=== PATIENT | female | born 1980 | race Caucasian/White ===

== ENCOUNTER 2019-09-29 13:26 | Emergency (ER) | payer BC, SELFPAY ==
--- NOTE | ~2019-09-29 | XR_ITS ---
XR chest 2V DATE: 09/29/2019 14:14 INDICATION: Cough and shortness of breath for a week TECHNIQUE: PA and lateral views COMPARISON: None FINDINGS: Bilateral hyperinflation. No pulmonary infiltrate or consolidation, pleural effusion or pul monary vascular congestion or pneumothorax. Normal heart size. No hilar or mediastinal enlargement. I ncluded skeletal structures are unremarkable. IMPRESSION: Bilateral hyperinflation; otherwise no active cardiopulmonary disease Reviewed, dictated and finalized at location A. IMPRESSION: Bilateral hyperinflation; otherwise no active cardiopulmonary disea se
[2019-09-29 13:35] VITALS: BP 120/67; PULSE 100; RESP 20; TEMP 37; O2SAT 100
--- NOTE | 2019-09-29 14:09 | ED.URI ---
HPI - URI/Sore Throat General Chief Complaint: Upper Respiratory Infection Stated Complaint: ears low grade fever drainage Time Seen by Provider: 09/29/19 13:41 Source: patient and RN notes reviewed Mode of arrival: ambulatory Limitations: no limitations History of Present Illness HPI Narrative: Patient presents today with an 8-day history of illness. Symptoms include fever up to 100.4, occasional cough with occasional shortness of breath, nasal congestion and postnasal drip, headache, body aches, left ear pain with decreased hearing. At onset of symptoms, patient had nausea and vomiting, but these GI symptoms have resolved. The remainder of her symptoms have persisted. States that she has an in-home pulse ox monitor and reports that a few days ago her pulse ox was 90% for approximately 5 minutes, and at this time she was slightly short of breath. Pulse ox then maritza to 95 to 97%. 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 She did call her PCP last week and was told That she likely had a virus, but he did not believe that she has COVID-19. Denies history of asthma or COPD. Patient does not vape. She took 1 dose of Advil Cold and Sinus this morning, but no other medications for symptoms since onset. She also has history of seasonal allergies. MD elicited complaint: cough and nasal congestion Related Data Home Medications Medication Instructions Recorded Confirmed alprazolam [Xanax] 0.25 mg PO TID PRN 09/29/19 09/29/19 ergocalciferol (vitamin D2) 1,250 mcg PO WEEKLY 09/29/19 09/29/19 [Vitamin D2] Allergies Allergy/AdvReac Type Severity Reaction Status Date / Time doxycycline Allergy Unknown Rash Verified 09/29/19 13:45 Review of Systems Review of Systems: Narrative: CONSTITUTIONAL: Denies chills, or sweats.+Fever, body aches EYES: Denies visual changes, redness, or discharge. ENT: Denies sore throat. +Congestion, rhinorrhea, postnasal drip, left ear pain with decreased hearing CARDIOVASCULAR: Denies chest pain, palpitations, or edema. RESPIRATORY: +Cough, occasional shortness of breath GASTROINTESTINAL: Denies abdominal pain, nausea, vomiting, or diarrhea. GENITOURINARY: Denies dysuria or hematuria. SKIN: Denies rash, itching, or wounds. MUSCULOSKELETAL: Denies back pain, joint pain, or myalgia. NEUROLOGIC: Denies numbness, tingling, or weakness.+Headache PSYCH: Denies depression or anxiety. PMFSH Comments At time of signature, I have reviewed and agree with nursing past medical, surgical, social and family history unless otherwise noted. Please see nursing chart for further information. There is no relevant family history pertinent to the presenting complaint Exam Narrative: Exam Narrative: GENERAL: Well-appearing, well-nourished, and in no acute distress. HEAD: Normocephalic, atraumatic. EYES: EOMI. No redness or drainage. Conjunctivae normal. ENT: Mucous membranes pink and moist. Nares clear. No rhinorrhea. TMs normal bilaterally. Throat normalWith small amount of white postnasal drainage. Uvula midline. NECK: Normal AROM. Supple. No lymphadenopathy. CHEST: No respiratory distress. Clear to auscultation. HEART: Regular rate and rhythm. No murmur appreciated. Normal peripheral pulses. EXTREMITIES: Normal range of motion. No edema. SKIN: Warm, dry, no rash. Capillary refill normal. Normal skin turgor. NEURO: No focal deficits. Alert and oriented x3. Gait steady. PSYCH: Normal affect. No signs of depression or anxiety. Course Vital Signs Vital signs: Vital Signs Temperature 98.6 F 09/29/19 13:35 Pulse Rate 100 09/29/19 13:35 Respiratory Rate 09/29/19 13:35 Blood Pressure 120/67 09/29/19 13:35 Pulse Oximetry 100 09/29/19 13:35 Temperature 98.6 F 09/29/19 13:35 Pulse Rate 100 09/29/19 13:35 Respiratory Rate 09/29/19 13:35 Blood Pressure 120/67 09/29/19 13:35 Pulse Oximetry 100 09/29/19 13:35 Reviewed MDM - URI/Sore Throat MDM Narrative Medical decision alberto
--- NOTE | 2019-10-08 11:59 | PC.NURSE ---
Alvino Villafana spoke with HAMZAH Caban and patient on 10/06/2019. Retest scheduled.
== END 2019-09-29 15:00 | disposition home or self-care (01) ==
PROVIDERS: Emergency Provider Nurse Practitioner; PCP Emergency Medicine
DX: B34.9 Viral infection, unspecified (principal); F41.9 Anxiety disorder, unspecified
CPT/HCPCS: 71046; 99213; G0463

== ENCOUNTER 2020-05-14 14:56 | Emergency (ER) | payer BC, SELFPAY ==
[2020-05-14 15:07] VITALS: BP 123/70; PULSE 109; RESP 16; TEMP 37.4; O2SAT 100
--- NOTE | 2020-05-14 15:31 | ED.URI ---
HPI - URI/Sore Throat General Chief Complaint: Upper Respiratory Infection Stated Complaint: Neck pain Source: patient Mode of arrival: ambulatory Limitations: no limitations History of Present Illness HPI Narrative: Patient is a 39-year-old female who presents complaining of sore throat, posterior and frontal headache, and mild body aches x2 days. Reports sore throat and headache increasing this a.m. She denies known exposure to COVID-19. She does work in healthcare. She also reports that she has not had a flu shot as of this time. She denies taking [id number] medications prior to arrival in urgent care. MD elicited complaint: sore throat Related Data Home Medications Medication Instructions Recorded Confirmed alprazolam [Xanax] 0.25 mg PO TID PRN 09/29/19 05/14/20 ergocalciferol (vitamin D2) 1,250 mcg PO WEEKLY 09/29/19 05/14/20 [Vitamin D2] Allergies Allergy/AdvReac Type Severity Reaction Status Date / Time doxycycline Allergy Unknown Rash Verified 05/14/20 15:06 Review of Systems Review of Systems: Narrative: CONSTITUTIONAL: Denies fever, chills, or sweats. EYES: Denies visual changes, redness, or discharge. ENT: Reports sore throat CARDIOVASCULAR: Denies chest pain, palpitations, or edema. RESPIRATORY: Denies cough or dyspnea. GASTROINTESTINAL: Denies abdominal pain, nausea, vomiting, or diarrhea. GENITOURINARY: Denies dysuria or hematuria. SKIN: Denies rash or itching. MUSCULOSKELETAL: Denies back pain, joint pain, or myalgia. NEUROLOGIC: Reports headache, denies numbness, dizziness, or weakness. PSYCHIATRIC: Denies anxiety or depression. [facility] Past Medical History Medical History (Updated 05/14/20 @ 15:39 by CHRIS Selby) Anxiety Dumping syndrome Family History Family History (Updated 05/14/20 @ 15:35 by CHRIS Selby) Other No significant family history Social History Social History Smoking status: Current every day smoker Tobacco type: e-cigarettes/vaping Alcohol intake: never Substance use: never Living arrangements: with family Occupation/Education: occupation Gender identity (if verbalized by the patient): Female Exam Narrative: Exam Narrative: GENERAL: Well-appearing, well-nourished, and in no acute distress. HEAD: Normocephalic, atraumatic. EYES: No redness or drainage. ENT: Mucous membranes pink and moist. Nares clear. No rhinorrhea. Throat erythema, no edema or exudate uvula midline. NECK: AROM. Supple. No lymphadenopathy. CHEST: No respiratory distress. HEART: Regular rate and rhythm. EXTREMITIES: Normal range of motion. No edema. SKIN: Warm, dry, no rash. NEURO: No focal deficits. Alert and oriented x3. Gait steady. PSYCH: Normal affect. No signs of depression or anxiety. Course Vital Signs Vital signs: Vital Signs Temperature 37.4 C 05/14/20 15:07 Pulse Rate 109 H 05/14/20 15:07 Respiratory Rate 16 05/14/20 15:07 Blood Pressure 123/70 05/14/20 15:07 Pulse Oximetry 100 05/14/20 15:07 Temperature 37.4 C 05/14/20 15:07 Pulse Rate 109 H 05/14/20 15:07 Respiratory Rate 16 05/14/20 15:07 Blood Pressure 123/70 05/14/20 15:07 Pulse Oximetry 100 05/14/20 15:07 Reviewed. Patient has been instructed to follow-up with her PCP regarding her blood pressure. MDM - URI/Sore Throat MDM Narrative Medical decision making narrative: Patient's rapid strep and influenza are negative. Discussed Covid testing with patient. Patient requests Covid testing at this time. 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 Discussed with patient the need for getting her flu shot as well. Covid testing ordered. Patient is stable for discharge to home with outpatient follow-up as needed. Patient is aware if she develops chest pain or shortness of breath, that she is go to the emergency department immediately for further evaluation. Different
== END 2020-05-14 15:41 | disposition home or self-care (01) ==
PROVIDERS: Emergency Provider Nurse Practitioner; PCP Emergency Medicine
DX: J06.9 Acute upper respiratory infection, unspecified (principal); Z20.828 Contact with and (suspected) exposure to other viral communicable diseases; F17.200 Nicotine dependence, unspecified, uncomplicated; F41.9 Anxiety disorder, unspecified
CPT/HCPCS: 87081; 87804; 87880; 99213; G0463

== ENCOUNTER 2020-05-25 18:48 | Emergency (ER) | payer BC, SELFPAY ==
--- NOTE | ~2020-05-25 | XR_ITS ---
EXAMINATION: XR chest 2V DATE: 05/25/2020 19:31 INDICATION: Vertigo TECHNIQUE: frontal and lateral views of the chest were obtained. COMPARISON: Chest radiograph dated 09/29/2019 FINDINGS: The lungs remain clear with no focal airspace opacities, pulmonary edema, pleural effusion or pneumot horax. The cardiomediastinal silhouette is normal. Cluster of coarse round calcifications projecting over the right axilla. IMPRESSION: 1. No acute cardiopulmonary disease. 2. Cluster of coarse round calcifications projecting over the right axilla with differential includin g heterotopic ossification, atherosclerotic calcifications, phleboliths, calcified lymph node related to old granulomatous disease or chondroid matrix in an enchondroma. Calcifications can be seen in me tastatic lymph nodes however to be a more stippled pattern. Correlate with clinical history and with mammography. Reviewed, dictated and finalized at location A. SIZER IMPRESSION: 1. No acute cardiopulmonary disease. 2. Cluster of coarse round calcifications projecting over the right axilla with differential including heterotopic ossification, atherosclerotic calcification s, phleboliths, calcified lymph node related to old granulomatous disease or ch ondroid matrix in an enchondroma. Calcifications can be seen in metastatic lymp h nodes however to be a more stippled pattern. Correlate with clinical history and with mammography.
[2020-05-25 18:55] VITALS: BP 140/75; PULSE 91; RESP 16; TEMP 36.8; O2SAT 100
--- NOTE | 2020-05-25 18:56 | ED.GENADULT ---
HPI - General Adult General Chief complaint: Nausea/Vomiting/Diarrhea Stated complaint: Dizziness/Nausea Time Seen by Provider: 05/25/20 18:56 Source: patient Mode of arrival: ambulatory Limitations: no limitations History of Present Illness HPI narrative: 31-year-old female patient presents to the [facility] with complaints of dizziness and nausea and just overall not feeling good since yesterday. Patient states she was seen in this clinic last week for sore throat and sinusitis symptoms. Patient states that she was tested for influenza and strep and states that they both came back negative. Patient was sent for Covid testing. Patient states she only had symptoms for about 2 days before she was tested however she did come back negative. Patient states yesterday she was at work and all of a sudden started having some lightheadedness dizziness, headache and some nausea. Patient also complaining of some back pain. Patient states she has had a little bit of shortness of breath here and there but denies any chest pain. Denies any abdominal pain vomiting and states that her stools have been more soft than normal. Patient denies any pain with urination. Denies any ear pain or sore throat at this time but states she has had some sinus congestion. Patient states she did try taking one of her Xanax at home thinking that it might be anxiety but states it has not helped. Patient denies taking any other medications for her symptoms. Related Data Home Medications Medication Instructions Recorded Confirmed alprazolam [Xanax] 0.25 mg PO TID PRN 09/29/19 05/14/20 ergocalciferol (vitamin D2) 1,250 mcg PO WEEKLY 09/29/19 05/14/20 [Vitamin D2] Lacto.acidophilus-Bif.animalis 1 cap PO DAILY 05/25/20 05/25/20 [Daily Probiotic] Allergies Allergy/AdvReac Type Severity Reaction Status Date / Time doxycycline Allergy Unknown Rash Verified 05/25/20 19:04 Review of Systems Review of Systems: Narrative: CONSTITUTIONAL: Denies fever, chills, or sweats. EYES: Denies visual changes, redness, or discharge. ENT: Denies rhinorrhea, positive congestion, denies sore throat, or otalgia. CARDIOVASCULAR: Denies chest pain, palpitations, or edema. RESPIRATORY: Denies cough or dyspnea. GASTROINTESTINAL: Denies abdominal pain, positive nausea, denies vomiting, or diarrhea. GENITOURINARY: Denies dysuria or hematuria. SKIN: Denies rash or itching. MUSCULOSKELETAL: Positive back pain, positive joint pain, positive myalgia. NEUROLOGIC: Positive headache, numbness, or weakness. PSYCHIATRIC: Denies anxiety or depression. [facility] Past Medical History Medical History Anxiety Dumping syndrome Family History Family History Other No significant family history Social History Social History Smoking status: Current every day smoker Tobacco type: e-cigarettes/vaping Alcohol intake: never Substance use: never Gender identity (if verbalized by the patient): Female Comments At the time of my signature I agree with nursing past medical history, surgical, social, and family history. There is no relevant family history pertinent to the presenting complaint. Exam Narrative: Exam Narrative: GENERAL: Well-appearing, well-nourished, and in no acute distress. HEAD: Normocephalic, atraumatic. EYES: PERRLA and EOMI. ENT: Nares clear, no rhinorrhea or epistaxis. Mucous membranes moist. Posterior pharynx with no erythema, tonsillar Lori, exudates or lesions present. Bilateral TMs are clear no erythema or foreign bodies to the canal. NECK: Supple. No lymphadenopathy CHEST: Clear to auscultation. No respiratory distress. Patient able talk clear complete sentences. No tripoding noted. HEART: Regular rate and rhythm. No murmur heard. Normal peripheral pulses. ABDOMEN: Soft, flat, nondistended. No guard
--- NOTE | 2020-05-25 19:07 | ECG_ITS ---
Measurements Intervals [place] Rate: 80 P: 64 [place]: 170 QRS: 74 QRSD: 102 T: 46 QT: 369 QTc: 427 Interpretive Statements SINUS RHYTHM INCOMPLETE RIGHT BUNDLE BRANCH BLOCK BORDERLINE ECG Electronically Signed On 05-26-2020 6:48:45 EDGER LINER by Chuy Palumbo D.O.
== END 2020-05-25 20:05 | disposition home or self-care (01) ==
PROVIDERS: Emergency Provider Nurse Practitioner Family; PCP Emergency Medicine
DX: B34.9 Viral infection, unspecified (principal); F41.9 Anxiety disorder, unspecified; F17.200 Nicotine dependence, unspecified, uncomplicated; I45.10 Unspecified right bundle-branch block
CPT/HCPCS: 71046; 93005; 99213; G0463

== ENCOUNTER 2020-07-28 13:28 | Outpatient (CLI) | payer BC, SELFPAY ==
--- NOTE | ~2020-07-28 | CT_ITS ---
EXAMINATION: CT sinus wo con DATE: 07/28/2020 13:55 INDICATION: Chronic sinusitis TECHNIQUE: Computed tomography (CT) of the paranasal sinuses was performed without contrast. Iterativ e reconstruction technique was employed. Exam dose: 274.70 mGy-cm total exam DLP. COMPARISON: None FINDINGS: There is leftward bowing of the nasal septum. The nasal turbinates are bilaterally prominent swollen, relatively symmetric in size. There is an 8 mm polyp or mucous retention cyst in the floor of the right maxillary sinus. There is soft tissue thickening at the left maxillary ostium. The left ostiomeatal unit patent otherw ise. Right ostiomeatal unit is patent. The paranasal sinuses otherwise are normally developed and aerated. The mastoid air cells are normally developed and aerated bilaterally. Middle and inner ear apparatus appear normal bilaterally. IMPRESSION: 8 mm polyp or mucous retention cyst at the floor of the right maxillary sinus Soft tissue thickening largely obscuring the left maxillary ostium Reviewed, dictated and finalized at Location A. Reviewed, dictated and finalized at location A. HER REPAIRER IMPRESSION: 8 mm polyp or mucous retention cyst at the floor of the right maxi llary sinus Soft tissue thickening largely obscuring the left maxillary ostium
== END 2020-07-28 13:29 ==
LOC: MICIMG 13:28
PROVIDERS: Visit Provider Otolaryngology
DX: J32.9 Chronic sinusitis, unspecified (principal)
CPT/HCPCS: 70486

== ENCOUNTER 2020-09-15 13:22 | Outpatient (CLI) | payer BC, SELFPAY ==
--- NOTE | ~2020-09-15 | US_ITS ---
EXAMINATION: US axilla RT INDICATION: Right axillary calcification on chest radiograph TECHNIQUE: High-resolution ultrasound of the right axilla was performed. COMPARISON: Chest radiograph dated 05/25/2020 FINDINGS: There is an approximately 1.7 x 0.7 cm lymph node in the right axilla which demonstrates in ternal calcification. An adjacent lymph node measures approximately 7 mm x 5 mm. No additional suspic ious cystic or solid mass is identified. IMPRESSION: 1. Right axillary lymph node with internal calcification. Differential is as previously described wit h enchondroma, atherosclerosis, and phleboliths less favored. Ultrasound-guided biopsy is recommended . Reviewed, dictated and finalized at location A. IMPRESSION: 1. Right axillary lymph node with internal calcification. Differential is as pr eviously described with enchondroma, atherosclerosis, and phleboliths less favo red. Ultrasound-guided biopsy is recommended.
--- NOTE | ~2020-09-15 | MM_ITS ---
EXAMINATION: MM screening jazz BI w carlos HISTORY: Baseline screening mammogram TECHNIQUE: Craniocaudal and mediolateral oblique 3-D tomosynthesis images were obtained and synthetic 2-D images were generated. CAD analysis was submitted and interpreted. COMPARISON: None, baseline BREAST PARENCHYMAL COMPOSITION: The breasts are heterogeneously dense, which may obscure small masses . FINDINGS: RIGHT BREAST: There is focal asymmetry in the posterior third of the slightly outer breast. LEFT BREAST: There is no evidence of suspicious mass, calcification, or architectural distortion to s uggest malignancy. IMPRESSION: 1. Focal asymmetry of the right breast. 2. Additional mammographic views and possible breast ultrasound are recommended to evaluate for malig lance and establish a baseline given that this is the first mammographic examination. BI-RADS Category 0: Incomplete: Needs additional imaging evaluation. Reviewed, dictated and finalized at location A. IMPRESSION: 1. Focal asymmetry of the right breast. 2. Additional mammographic views and possible breast ultrasound are recommended to evaluate for malignancy and establish a baseline given that this is the fir st mammographic examination. BI-RADS Category 0: Incomplete: Needs additional imaging evaluation.
== END 2020-09-15 13:23 ==
PROVIDERS: PCP Emergency Medicine; Visit Provider Emergency Medicine
DX: Z12.31 Encounter for screening mammogram for malignant neoplasm of breast (principal); R92.8 Other abnormal and inconclusive findings on diagnostic imaging of breast; R91.8 Other nonspecific abnormal finding of lung field
CPT/HCPCS: 76882; 77063; 77067

== ENCOUNTER 2020-12-15 14:13 | Outpatient (CLI) | payer OTHER, SELFPAY ==
--- NOTE | ~2020-12-15 | MMUS_ITS ---
EXAMINATION: MM diagnostic jazz RT w carlos, US breast RT complete HISTORY: Focal asymmetry of right breast reported on 09/15/2020 screening mammogram TECHNIQUE: Additional 3-D tomosynthesis images of the right breast were performed and synthetic 2-D i mages were generated. CAD analysis was submitted and interpreted. High resolution complete right nava st ultrasound was performed. COMPARISON: 09/15/2020 bilateral digital screening mammogram BREAST PARENCHYMAL COMPOSITION: The breasts are heterogeneously dense, which may obscure small masses . FINDINGS: MAMMOGRAPHIC FINDINGS: A 4.4 mm circumscribed opacity is suggested in the very posterior mid outer right breast (ML Tomosynt hesis image ). No suspicious mass, architectural distortion, malignant constipation, skin thickening or retraction i s evident. ULTRASOUND: 12:00 4.5 cm from nipple: Parallel circumscribed 2.2 x 5 x 4.4 mm cyst 12:00 subareolar area: Parallel circumscribed 2.7 x 5.5 x 5.9 mm hypoechoic lesion without suspicious shadowing 2:00 3 cm from nipple: 2.4 x 4.3 mm parallel circumscribed sonolucency with through transmission, lik jermaine a small cyst 3:00 5.5 cm from nipple: Parallel circumscribed 2.3 x 5 x 7.1 mm sonolucency with through transmissio n, likely a cyst 6:00 2 cm from nipple: Septated cyst measuring 2.3 x 4.6 x 4.7 mm 8:00 4 cm from nipple: Mildly irregular 2.4 x 3.8 x 3.7 mm hypoechoic lesion with adjacent vascularit y on color flow imaging. The margins appear slightly irregular/serrated. Ultrasound-guided biopsy is recommended. 9:00 5 cm from nipple: 7.5 x 3.3 x 6.2 mm simple cyst and 1.9 x 4.7 x 7.1 mm cyst 10:00 8 cm from nipple: Multiple up to 12 mm cyst 11:00 4 cm from nipple: Septated 3 x 9 x 8.4 mm cyst and 2.4 x 4.6 mm cyst 9-10:00 3 cm from nipple: Septated 2.7 x 5.3 x 7 mm septated cyst IMPRESSION: 1. Right breast 8:00 mildly irregular up to 3.8 mm lesion 2. Ultrasound-guided biopsy of right breast 8:00 lesion 4 cm from nipple is recommended BI-RADS category 4, suspicious findings. Reviewed, dictated and finalized at location A. IMPRESSION: 1. Right breast 8:00 mildly irregular up to 3.8 mm lesion 2. Ultrasound-guided biopsy of right breast 8:00 lesion 4 cm from nipple is rec ommended BI-RADS category 4, suspicious findings.
== END 2020-12-15 14:14 ==
LOC: MICIMG 14:15
PROVIDERS: PCP Emergency Medicine; Visit Provider Emergency Medicine
DX: N63.12 Unspecified lump in the right breast, upper inner quadrant (principal); N63.14 Unspecified lump in the right breast, lower inner quadrant; N60.01 Solitary cyst of right breast
CPT/HCPCS: 76641; 77061; 77065; G0279

== ENCOUNTER 2021-10-06 13:54 | Emergency (ER) | payer OTHER, SELFPAY ==
[2021-10-06 14:00] VITALS: BP 128/69; PULSE 121; RESP 20; TEMP 38.1; O2SAT 98
--- NOTE | 2021-10-06 14:27 | ED.URI ---
HPI - URI/Sore Throat General Chief Complaint: Upper Respiratory Infection Stated Complaint: Fever/Cough Time Seen by Provider: 10/06/21 14:27 Source: patient and RN notes reviewed Mode of arrival: ambulatory Limitations: no limitations History of Present Illness HPI Narrative: 41-year-old female presented for complaints of sinus congestion, cough, and headache worsening over the past 4 days. She is taking Advil Cold and Sinus which helped temporarily. She states of the last 2 days it settled more in her chest and she has had more coughing productive of yellow sputum along with a fever yesterday. Denies nausea, vomiting or diarrhea, shortness of breath or wheezing. Endorses sick contacts her coworker last week. She is not vaccinated for flu. She is not boosted for COVID. MD elicited complaint: cough Related Data Home Medications Medication Instructions Recorded Confirmed ergocalciferol (vitamin D2) 1,250 mcg PO WEEKLY 09/29/19 05/25/20 [Vitamin D2] Lacto.acidophilus-Bif.animalis 1 cap PO DAILY 05/25/20 05/25/20 [Daily Probiotic] alprazolam 0.5 mg PO BID PRN 10/06/21 10/06/21 Allergies Allergy/AdvReac Type Severity Reaction Status Date / Time doxycycline Allergy Mild Rash Verified 10/06/21 14:30 Review of Systems Review of Systems: CONSTITUTIONAL: Endorses malaise, fever EYES: Denies visual changes, redness, or discharge ENT: Reports rhinorrhea, congestion, sinus pain, otalgia CARDIOVASCULAR: Denies chest pain, palpitations, edema RESPIRATORY: Reports cough, post nasal drainage. Denies dyspnea GASTROINTESTINAL: Denies abdominal pain, nausea, vomiting, diarrhea SKIN: Denies rash or itching MUSCULOSKELETAL: Endorses myalgia NEUROLOGIC: Denies headache PMFSH Past Medical History Medical History Anxiety Dumping syndrome Family History Family History Other No significant family history Social History Social History Smoking status: Current every day smoker Tobacco type: e-cigarettes/vaping Alcohol intake: never Substance use: never Gender identity (if verbalized by the patient): Female Exam Narrative: GENERAL: Ill-appearing, nontoxic HEAD: Normocephalic EYES: conjunctivae clear ENT: Mucous membranes moist. TM pearly moser with dull light reflex bilaterally; no tragal tenderness. Oropharynx erythematous without lesions or exudate, no drooling, no hoarseness, no trismus, uvula midline. NECK: Supple. No lymphadenopathy CHEST: Clear to auscultation, breath sounds equal. No wheezing, rhonchi, rales, or stridor. No respiratory distress HEART: Regular rate and rhythm. No murmur heard. SKIN: Warm, dry, no rash. NEURO: Alert and oriented x3. PSYCH: Normal mood and affect Course Course Emergency Course: Patient is aware of diagnosis, understands and agrees to treatment plan. Anticipatory guidance given. Patient agrees to follow-up as directed and is aware of reasons to seek care at the emergency department. Portions of this record may have been created with voice recognition software Level of Care: Express Care Visit Vital Signs Vital signs: Vital Signs Temperature 100.5 F H 10/06/21 14:00 Pulse Rate 121 H 10/06/21 14:00 Respiratory Rate 20 10/06/21 14:00 Blood Pressure 128/69 10/06/21 14:00 Pulse Oximetry 98 10/06/21 14:00 Temperature 100.5 F H 10/06/21 14:00 Pulse Rate 121 H 10/06/21 14:00 Respiratory Rate 20 10/06/21 14:00 Blood Pressure 128/69 10/06/21 14:00 Pulse Oximetry 98 10/06/21 14:00 reviewed MDM - URI/Sore Throat MDM Narrative Medical decision making narrative: Covid positive. She is advised on supportive treatments. She is appropriate for outpatient treatment and follow-up. Differential Diagnosis Differential diagnosis: Likely upper respiratory infection, sinusitis and
== END 2021-10-06 14:50 | disposition home or self-care (01) ==
PROVIDERS: Emergency Provider Nurse Practitioner Family; PCP Emergency Medicine
DX: U07.1 COVID-19 (principal); F17.290 Nicotine dependence, other tobacco product, uncomplicated; F41.9 Anxiety disorder, unspecified; K91.1 Postgastric surgery syndromes
CPT/HCPCS: 87426; 87804; 99213; C9803; G0463

== ENCOUNTER → 2022-12-12 16:42 | Outpatient (CLI) | payer BC, SELFPAY ==
--- NOTE | ~2022-12-12 | MM_ITS ---
EXAMINATION: MM screening jazz BI w carlos HISTORY: Screening mammogram TECHNIQUE: Craniocaudal and mediolateral oblique 3-D tomosynthesis images were obtained and synthetic 2-D images were generated. CAD analysis was submitted and interpreted. COMPARISON: 12/15/2020 diagnostic right mammogram and complete right breast ultrasound examination 09/15/2020 bilateral screening mammogram BREAST PARENCHYMAL COMPOSITION: The breasts are heterogeneously dense, which may obscure small masses . FINDINGS: There is no evidence of suspicious mass, calcification, or architectural distortion to sugg est malignancy in either breast. There has been no suspicious interval change. IMPRESSION: 1. No mammographic evidence of malignancy. 2. Recommend routine screening mammography in one year. BI-RADS Category 1: Negative Reviewed, dictated and finalized at location A.
== END ==
PROVIDERS: PCP Nurse Practitioner Women's Health; Visit Provider Emergency Medicine
DX: Z12.31 Encounter for screening mammogram for malignant neoplasm of breast (principal)
CPT/HCPCS: 77063; 77067

== ENCOUNTER 2023-04-03 14:40 | Outpatient (CLI) | payer BC, SELFPAY ==
--- NOTE | 2023-04-03 17:16 | WPDPFTINT ---
PFT Procedure Performed PFT Procedure Performed Spirometry with Pre/Post Bronchodilator Plethysmography (Lung Vol) Diffusing Cap (DLCO) Flow Vol Loop PFT Interpretation This is a pulmonary function test with pre and post-bronchodilator spirometry, plethysmography and diffusing capacity. The test was performed and results interpreted in accordance with the 2019 and 2005 ATS/ERS Task Force guidelines respectively using the Global Lung Function Initiative-2012 reference equations. Patient demonstrated good effort and cooperation. Reproducibility criteria were met. The quality of the pre bronchodilator spirometry maneuver was Grade A and post bronchodilator spirometry maneuver was Grade A. Findings: Spirometry: The contour the inspiratory and expiratory flow tracing are normal. The pre bronchodilator FVC is 4.38 L, 124% predicted. The pre bronchodilator FEV1 is 3.11 L, 107% predicted. The pre bronchodilator FEV1: FVC ratio 71%. The post bronchodilator FVC is 4.27 L, representing a 3% decrease. The post bronchodilator FEV1 is 3.08 L, representing a 1% decrease. The post bronchodilator FEV1: FVC ratio 72%. Plethysmography: The total lung capacity is 6.38 L, 130% predicted. The functional residual capacity is 2.82 L, 104% predicted. The residual volume is 2.00 L, 128% predicted. Diffusing capacity: The diffusing capacity unadjusted for hemoglobin and carboxyhemoglobin is 24.5, 105% predicted. The diffusing capacity adjusted for alveolar volume is 4.80, 100% predicted. Impression: There is a mild obstructive abnormality with a normal FEV1 and without significant improvement after inhaling a single dose of albuterol. Hyperinflation is present as demonstrated by the increase in total lung capacity and is consistent with an obstructive abnormality. The diffusing capacity is normal. There are no prior studies for comparison
== END 2023-04-03 14:41 | disposition home or self-care (01) ==
PROVIDERS: PCP Nurse Practitioner Women's Health; Visit Provider Emergency Medicine
DX: R05.3 Chronic cough (principal); R94.2 Abnormal results of pulmonary function studies
CPT/HCPCS: 94060; 94726; 94729

== ENCOUNTER 2023-11-20 16:21 | Emergency (ER) | payer BC, SELFPAY ==
[2023-11-20 16:35] VITALS: BP 124/71; PULSE 79; RESP 16; TEMP 37.4; O2SAT 100
--- NOTE | 2023-11-20 17:02 | ED.URI ---
HPI - URI/Sore Throat General Chief Complaint: Upper Respiratory Infection Stated Complaint: Sore Throat/Left Ear Pain Source: patient, RN notes reviewed and old records reviewed Mode of arrival: ambulatory Limitations: no limitations History of Present Illness HPI Narrative: 43-year-old female to [facility] for complaint of runny nose, sneezing, drainage for 1 week and left ear pain x2 days. Patient denies cough, seasonal allergies, fever, sore throat, GI complaints. Patient able to tolerate fluids by mouth. Respirations even and nonlabored. No acute distress.. Related Data Home Medications Medication Instructions Recorded Confirmed ergocalciferol (vitamin D2) 1,250 1,250 mcg PO WEEKLY 09/29/19 10/06/21 mcg (50,000 unit) capsule (Vitamin D2) Lactobacillus 1 cap PO DAILY 05/25/20 10/06/21 acidophilus-Bifidobac.animalis 2.5 billion cell capsule (Daily Probiotic) alprazolam 0.5 mg tablet 0.5 mg PO BID PRN Anxiety 10/06/21 10/06/21 loratadine 10 mg tablet mg 11/20/23 Allergies Allergy/AdvReac Type Severity Reaction Status Date / Time doxycycline Allergy Mild Rash Verified 11/20/23 16:32 Review of Systems Review of Systems: All systems reviewed & are unremarkable except as noted in HPI and below Constitutional: Constitutional: Reports no additional constitutional complaints Eyes: Eyes: Reports no additional eye complaints ENT: Reports as per HPI, Reports nasal discharge, Reports post nasal drip and Reports other ( Sneezing) Cardiovascular: Cardiovascular: Reports no additional cardiovascular complaints, Denies chest pain and Denies dyspnea Respiratory: Respiratory: Reports no additional respiratory complaints, Denies cough and Denies dyspnea Musculoskeletal: Musculoskeletal: Reports no additional musculoskeletal complaints Neurologic: Reports system reviewed and no additional complaints, except as documented Psychiatric: Psychiatric: Reports no additional psychiatric complaints [facility] Past Medical History Medical History Anxiety Dumping syndrome Family History Family History Other No significant family history Social History Social History Smoking status: Current every day smoker Tobacco type: e-cigarettes/vaping Alcohol intake: never Substance use: never Living arrangements: with family Occupation/Education: occupation Gender identity (if verbalized by the patient): Female Comments At the time of my signature, I reviewed and agree with the nursing past medical, surgical, social, and family history. There is no relevant family history pertinent to the patient complaint. Exam Const: General: cooperative, healthy appearing, no acute distress, alert, tired appearing and well nourished Nutritional Appearance: well nourished Orientation/consciousness: patient oriented x3 Limitations: no limitations HENMT: Head: normal to inspection Ears: external ears normal and TM abnormal with fluid behind the TM bilateral and diffuse Face/Nose/Sinus: Normal external nose present, Normal nares present, normal facial exam, No erythema and No edema Face and sinus: normal facial exam, no erythema and no edema Mouth: Yes Normal oral and palatal mucosa present Throat: posterior oropharynx abnormal erythema and postnasal drainage Eyes: General: appearance normal, both eyes and all related structures Neck: Neck: normal visual inspection, full ROM and no meningeal signs Lymphatic: no lymphadenopathy noted and no lymphedema noted Chest: Chest palpation & inspection: normal inspection of the chest Resp: Effort & Inspection: normal respiratory effort and able to speak in complete sentences Auscultation: clear to auscultation bilaterally Cardio: Jugular venous distension: no JVD Rate: regular rate Rhythm:
== END 2023-11-20 17:26 | disposition home or self-care (01) ==
PROVIDERS: Emergency Provider Nurse Practitioner Family
DX: J06.9 Acute upper respiratory infection, unspecified (principal); F17.290 Nicotine dependence, other tobacco product, uncomplicated; F41.9 Anxiety disorder, unspecified
CPT/HCPCS: 87081; 87880; 99213; G0463

== ENCOUNTER 2025-05-31 15:18 | Outpatient (CLI) | payer BC, SELFPAY ==
--- NOTE | ~2025-05-31 | MM_ITS ---
EXAMINATION: MM screening jazz BI w carlos HISTORY: Screening. TECHNIQUE: Craniocaudal and mediolateral oblique 3-D tomosynthesis images were obtained and synthetic 2-D images were generated. CAD analysis was submitted and interpreted. COMPARISON: 2022 and 2020 BREAST PARENCHYMAL COMPOSITION: Dense: The breasts are heterogeneously dense FINDINGS: There are findings consistent with the known breast cysts. No suspicious masses are seen. There are no suspicious calcifications. No unexplained architectural distortion is seen. There are no skin or nipple abnormalities identified. There is no adenopathy seen on the images submitted. IMPRESSION: No mammographic evidence to suggest malignancy is seen. The patient may return to screening mammography as per ACR guidelines. BI-RADS 2 - Benign. Reviewed, dictated and finalized at location C. [facility] [employer]
== END 2025-05-31 15:19 | disposition home or self-care (01) ==
LOC: MICIMG 15:18
PROVIDERS: PCP Nurse Practitioner Women's Health; Visit Provider Nurse Practitioner Women's Health
DX: Z12.31 Encounter for screening mammogram for malignant neoplasm of breast (principal)
CPT/HCPCS: 77063; 77067